=== PATIENT | male | born 1985 | race Caucasian/White ===

== ENCOUNTER 2021-04-12 04:17 | Emergency (ER) | payer SELFPAY ==
[~2021-04-12] VITALS: Ht 172.7 cm; Wt 77.3 kg
[2021-04-12 04:19] VITALS: TEMP 98.2
[2021-04-12 05:33] VITALS: BP 127/86; PULSE 81
== END 2021-04-12 05:33 | disposition home or self-care (01) ==
LOC: COL.ER 04:17
DX: S41.112A Laceration without foreign body of left upper arm, initial encounter (principal); Z87.891 Personal history of nicotine dependence; W25.XXXA Contact with sharp glass, initial encounter; Y99.0 Civilian activity done for income or pay